=== PATIENT | female | born 1980 | race Caucasian/White ===

== ENCOUNTER → 2016-05-02 | Outpatient (CLI) | payer OTHER ==
[~2016-05-02] VITALS: Ht 172.7 cm; Wt 117.9 kg
[~2016-05-02] MED LIST: COLACE 100MG C100 MG PO; IBUPROFEN600 MG PO; NORCO 5-325 TA1 EACH PO
== END ==
LOC: OPSV 13:00
DX: G35 Multiple sclerosis (principal)
CPT/HCPCS: 96365; J7050

== ENCOUNTER → 2016-05-30 | Outpatient (CLI) | payer OTHER ==
[~2016-05-30] VITALS: Ht 172.7 cm; Wt 117.9 kg
== END ==
LOC: OPSV 11:00
DX: G35 Multiple sclerosis (principal)
CPT/HCPCS: 96365; 96372; J1200; J2930; J7050

== ENCOUNTER → 2016-06-28 | Outpatient (CLI) | payer OTHER | LOC: EMI 09:43 | DX: G35 Multiple sclerosis (principal); R90.89 Other abnormal findings on diagnostic imaging of central nervous system | CPT/HCPCS: 70553; A9577; J7050 ==

== ENCOUNTER → 2020-06-28 | Outpatient (CLI) | payer OTHER ==
[~2020-06-28] MED LIST changes: +ANTIVERT 12.512.5 MG PO; +ZOFRAN4 MG PO
== END ==
LOC: US 10:17
DX: R74.8 Abnormal levels of other serum enzymes (principal); K76.0 Fatty (change of) liver, not elsewhere classified; K80.20 Calculus of gallbladder without cholecystitis without obstruction
CPT/HCPCS: 76705

== ENCOUNTER → 2020-12-21 | Outpatient (CLI) | payer OTHER ==
[~2020-12-21] VITALS: Ht 172.7 cm; Wt 154.2 kg
== END ==
LOC: OPSV 12:00
DX: G35 Multiple sclerosis (principal)
CPT/HCPCS: 96365; J2930; J7070

== ENCOUNTER → 2020-12-22 | Outpatient (CLI) | payer OTHER ==
[~2020-12-22] VITALS: Ht 172.7 cm; Wt 154.2 kg
== END ==
LOC: OPSV 12:48
DX: G35 Multiple sclerosis (principal)
CPT/HCPCS: 96365; J2930; J7070

== ENCOUNTER → 2020-12-23 | Outpatient (CLI) | payer OTHER ==
[~2020-12-23] VITALS: Ht 172.7 cm; Wt 154.2 kg
== END ==
LOC: OPSV 13:00
DX: G35 Multiple sclerosis (principal)
CPT/HCPCS: 96365; J2930; J7070

== ENCOUNTER → 2021-05-31 | Outpatient (CLI) | payer OTHER ==
[2021-05-31 18:08] LABS: HEMOGLOBIN 12.9 gm/dl (12.3-15.3); RED BLOOD COUNT 4.53 M/UL (4.00-5.10); WHITE BLOOD COUNT 9.5 K/UL (4.5-11.0)
[2021-05-31 18:34] LABS: BUN/CREATININE RATIO 14 (0-10)
== END ==
LOC: LAB 17:25
PROVIDERS: Psychiatry & Neurology Neurology
DX: G35 Multiple sclerosis (principal)
CPT/HCPCS: 80053; 81001; 85025; 87086

== ENCOUNTER → 2021-06-07 | Outpatient (CLI) | payer OTHER | LOC: KOH-I 11:49 | DX: M25.561 Pain in right knee (principal); M25.562 Pain in left knee | CPT/HCPCS: 73562 ==

== ENCOUNTER → 2021-06-27 | Outpatient (CLI) | payer OTHER ==
[~2021-06-27] VITALS: Ht 172.7 cm; Wt 154.2 kg
== END ==
LOC: OPSV 11:00
DX: G35 Multiple sclerosis (principal)
CPT/HCPCS: 96365; J2930; J7070

== ENCOUNTER → 2021-06-28 | Outpatient (CLI) | payer OTHER ==
[~2021-06-28] VITALS: Ht 172.7 cm; Wt 154.2 kg
== END ==
LOC: OPSV 13:41
DX: G35 Multiple sclerosis (principal)
CPT/HCPCS: 96365; J2930; J7070

== ENCOUNTER → 2021-06-30 | Outpatient (CLI) | payer OTHER ==
[~2021-06-30] VITALS: Ht 172.7 cm; Wt 154.2 kg
== END ==
LOC: OPSV 13:54
DX: G35 Multiple sclerosis (principal)
CPT/HCPCS: 96365; J2930; J7030; J7070

== ENCOUNTER 2021-07-06 10:49 | Emergency (ER) | payer OTHER ==
[2021-07-06 14:02] LABS: HEMOGLOBIN 13.4 gm/dl (12.3-15.3); RED BLOOD COUNT 4.69 M/UL (4.00-5.10); WHITE BLOOD COUNT 9.2 K/UL (4.5-11.0)
[2021-07-06 14:30] LABS: BUN/CREATININE RATIO 14 (0-10)
== END 2021-07-06 15:20 | disposition home or self-care (01) ==
LOC: ER1 10:49
PROVIDERS: Emergency Medicine
DX: F41.9 Anxiety disorder, unspecified (principal); F41.0 Panic disorder [episodic paroxysmal anxiety]; G35 Multiple sclerosis; Z90.49 Acquired absence of other specified parts of digestive tract
CPT/HCPCS: 80053; 82550; 82553; 83735; 84484; 85025; 93005; 99283; J2060

== ENCOUNTER 2021-09-09 14:38 | Emergency (ER) | payer OTHER ==
[2021-09-09 15:51] LABS: HEMOGLOBIN 13.9 gm/dl (12.3-15.3); RED BLOOD COUNT 4.83 M/UL (4.00-5.10); WHITE BLOOD COUNT 9.7 K/UL (4.5-11.0)
[2021-09-09 16:12] LABS: BUN/CREATININE RATIO 15 (0-10)
[2021-09-09] MEDS ORDERED: MEDROL4 MG PO (17:49)
== END 2021-09-09 18:10 | disposition home or self-care (01) ==
LOC: ER1 14:38
PROVIDERS: Otolaryngology
DX: G35 Multiple sclerosis (principal); F17.290 Nicotine dependence, other tobacco product, uncomplicated
CPT/HCPCS: 70450; 80053; 82550; 82553; 84484; 85025; 93005; 96374; 99284; J2930

== ENCOUNTER → 2021-09-21 | Outpatient (CLI) | payer OTHER ==
[~2021-09-21] VITALS: Ht 172.7 cm; Wt 125.6 kg
[~2021-09-21] MED LIST changes: +MEDROL4 MG PO
[2021-09-21 08:56] LABS: HEMOGLOBIN 14.8 gm/dl (12.3-15.3); RED BLOOD COUNT 5.29 M/UL (4.00-5.10); WHITE BLOOD COUNT 4.9 K/UL (4.5-11.0)
[2021-09-21 09:11] LABS: BUN/CREATININE RATIO 12 (0-10)
[2021-09-22 12:15] LABS: IMMUNOGLOBULIN A, QN, SERUM 341 mg/dL (87-352); IMMUNOGLOBULIN G, QN, SERUM 1204 mg/dL (586-1602); IMMUNOGLOBULIN M, QN, SERUM 117 mg/dL (26-217)
== END ==
LOC: OPSV 08:00
PROVIDERS: Psychiatry & Neurology Neurology
DX: G35 Multiple sclerosis (principal)
CPT/HCPCS: 80053; 82784; 85025; 96365; J2930; J7030

== ENCOUNTER → 2021-09-22 | Outpatient (CLI) | payer OTHER | LOC: OPSV 08:00 | DX: G35 Multiple sclerosis (principal) | CPT/HCPCS: 96365; J2930; J7070 ==

== ENCOUNTER → 2021-09-23 | Outpatient (CLI) | payer OTHER ==
[~2021-09-23] VITALS: Ht 172.7 cm; Wt 125.6 kg
== END ==
LOC: OPSV 07:56
DX: G35 Multiple sclerosis (principal)
CPT/HCPCS: 96365; J2930; J7070